=== PATIENT | female | born 1970 | race Caucasian/White ===

== ENCOUNTER 2017-12-11 12:22 | Observation (INO) | payer MEDICARE, OTHER, MEDICAID ==
[2017-12-11 13:09] VITALS: BMI 28.3
--- NOTE | 2017-12-11 13:15 | ED PDOC ---
Arrival/HPI - General Chief Complaint: Shortness Of Breath Time Seen by Provider: 12/11/17 12:30 Historian: Patient - History of Present Illness Narrative History of Present Illness (Text): 12/11/17 13:11 A 47 year old female, whose past medical history includes asthma and gastric bypass surgery, presents to the emergency department with a complaint of 6 day duration shortness of breath. The patient states that the shortness of breath have been worsening over the last few days. She has taken her Albuterol pump treatments and Prednisone with no relief of her symptoms. She notes that she called her PMD who prescribed her a Z- pack and recommended she come into the emergency department for further evaluation of her symptoms. The patient states that she has been admitted to the hospital for asthma exacerbation in the past. The patient denies fevers, chills, headache, dizziness, sore throat, cough, chest pain, abdominal pain, nausea, vomiting, diarrhea, neck/back pain, urinary/bowel changes or any other complaint. PMD: Dr. Menard Time/Duration: Other (6 days) Symptom Onset: Gradual Symptom Course: Worsening Activities at Onset: Rest, Light Context: Home Past Medical History - Provider Review Nursing Documentation Reviewed: Yes - Hematological/Oncological Hx Anemia: Yes - Psychiatric Hx Depression: No Hx Emotional Abuse: No Hx Physical Abuse: No Hx Substance Use: No - Surgical History Hx Gastric Bypass Surgery: Yes Hx Tonsillectomy: Yes Hx Tubal Ligation: Yes - Suicidal Assessment Feels Threatened In Home Enviroment: No Family/Social History - Physician Review Nursing Documentation Reviewed: Yes Family/Social History: No Known Family HX Smoking Status: Never Smoked Hx Alcohol Use: No Hx Substance Use: No Hx Substance Use Treatment: No Allergies/Home Meds Allergies/Adverse Reactions: Allergies ciprofloxacin [From Cipro] Allergy (Verified 12/11/17 13:10) REDNESS iodine Allergy (Verified 12/11/17 13:10) ANAPHYLAXIS levofloxacin [From Levaquin] Allergy (Verified 12/11/17 13:10) REDNESS moxifloxacin [From Avelox] Allergy (Verified 12/11/17 13:10) REDNESS Penicillins Allergy (Verified 12/11/17 13:10) REDNESS Home Medications: Home Meds Medication Instructions Recorded Confirmed Acetaminophen/Oxycodone Hydr 1 tab PO TID PRN 08/31/11 10/11/13 [Percocet 325 mg-7.5 mg] Alprazolam [Xanax] 0.5 mg PO TID 08/31/11 10/11/13 predniSONE [Prednisone] 5 mg PO DAILY 08/31/11 10/11/13 Albuterol Sulfate [Albuterol Hfa] 2 puff NEB Q6 PRN 11/04/11 10/11/13 B1/B2/Niacin/B12/Protease [B 1 tab PO DAILY 11/04/11 10/11/13 Complex & B12] Calcium/Vitamin D [Calcium 600 + 1 tab PO BID 11/04/11 10/11/13 Vitamin D 600 mg-200 Iu] Ferrous Sulfate 1 unit PO DAILY 11/04/11 10/11/13 Multivitamin, Minerals, and 1 tab PO BID 11/04/11 10/11/13 [Centrum Silver] Review of Systems - Physician Review All systems were reviewed & negative as marked: Yes - Review of Systems Constitutional: absent: Fevers ENT: absent: Sore Throat Respiratory: SOB Cardiovascular: absent: Chest Pain Gastrointestinal: absent: Abdominal Pain, Stool Changes, Constipation, Diarrhea, Nausea Genitourinary Female: absent: Urine Output Changes Musculoskeletal: absent: Back Pain, Neck Pain Neurological: absent: Headache, Dizziness Physical Exam Vital Signs Reviewed: Yes Temperature: Afebrile Blood Pressure: Hypertensive Pulse: Regular Respiratory Rate: Normal Appearance: Positive for: Well-Appearing, Non-Toxic, Comfortable Pain Distress: None Mental Status: Positive for: Alert and Oriented X 3 - Systems Exam Head: Present: Atraumatic, Normocephalic Pupils: Present: PERRL Extroacular Muscles: Present: EOMI Conjunctiva: Present: Normal Mouth: Present: Moist Mucous Membranes Neck: Present: Normal Range of Motion Respiratory/Chest: Present: Wheezes (Wheezing bilaterally. ) Cardiovascular: Present: Regular Rate and Rhythm, Normal S1, S2. No: Murmurs Abdomen: No: Tenderness, Distention, Peritoneal Signs Back: Present: Normal Inspection Upper Extremity: Present: Normal Inspection. No: Cyanosis, Edema Lower Extremity: Present: Normal Inspection. No: Edema Neurological: Present: GCS=15, CN II-XII Intact, Speech Normal Skin: Present: Warm, Dry, Normal Color. No: Rashes Psychiatric: Present: Alert, Oriented x 3, Normal Insight, Normal Concentration Medical Decision Making ED Course and Treatment: 12/11/17 13:17 Impression: A 47 year old female, with a history of asthma, presents to the emergency department with a complaint of 6 day duration shortness of breath. On exam, tony ent wheezing moderately bilaterally, but speaking full sentences in NAD. Plan: -- EKG -- Chest X-ray -- Labs -- SOLU- Medrol and Magnesium Sulfate -- Reassess and disposition Prior Visits: Notes and results from previous visits were reviewed. Progress Notes: 12/11/17 13:04 EKG: Ordered, reviewed, and independently interpreted the EKG. Rate : 69 BPM Rhythm : NSR Interpretation : No STEMI 12/11/17 16:22 lungs cta upon reassessment. pt notes some recurrent sob however and feels like she needs to stay. Given hx of admission for asthma, will place in obs for asthma. Consulted Dr. Menard: We are to admit to hospitalist. appreciate consult w/ Dr. Hernandez: to admit to his service, endorsed pending XR. - Lab Interpretations I have reviewed the lab results: Yes - EKG Interpretation Interpreted by ED Physician: Yes Type: 12 lead EKG - Scribe Statement The provider has reviewed the documentation as recorded by the Scribe Manasa Manzo Provider Scribe Attestation: All medical record entries made by the Scribe were at my direction and personally dictated by me. I have reviewed the chart and agree that the record accurately reflects my personal performance of the history, physical exam, medical decision making, and the department course for this patient. I have also personally directed, reviewed, and agree with the discharge instructions and disposition. Disposition/Present on Arrival - Present on Arrival Any Indicators Present on Arrival: No History of DVT/PE: No History of Uncontrolled Diabetes: No Urinary Catheter: No History of Decub. Ulcer: No History Surgical Site Infection Following: None - Disposition Have Diagnosis and Disposition been Completed?: Yes Diagnosis: Asthma Disposition Time: 16:15 Condition: GOOD Referrals: Kenny Menard MD [Primary Care Provider] - Follow up with primary Forms: [employer] ([employer])
[2017-12-11] MEDS ORDERED: Magnesium Sulfate 1 gm in D5W 1 GM/100 ML BAG IVPB ONE (13:30)
[2017-12-11] MEDS: Albuterol-Ipratrop 3 mg / 0.5 (3 ml) UD IH SCH ×3 (14:17→23:54)
[2017-12-11 14:52] LABS: BASO # 0.02 K/mm3 (0.0-2.0); BASO % 0.3 % (0.0-3.0); EOS # 0.2 (0.0-0.7); EOS % 3.2 % (1.5-5.0); GRAN # 5.16 (1.4-6.5); GRAN % 68.6 % (50.0-68.0); HEMOGLOBIN 12.9 g/dL (12.0-16.0); LYMPH # 1.7 (1.2-3.4); LYMPH % 23.1 % (22.0-35.0); MEAN CELL VOLUME 90.1 fl (80.0-105.0); MEAN CORPUSCULAR HEMOGLOBIN 30.4 pg (25.0-35.0); MEAN CORPUSCULAR HGB CONC 33.8 g/dl (31.0-37.0); MEAN PLATELET VOLUME 11.1 fl (7.0-11.0); MONO # 0.4 (0.1-0.6); MONO % 4.8 % (1.0-6.0); RBC 4.24 10^6/uL (3.5-6.1); RED CELL DISTRIBUTION WIDTH 12.8 % (11.5-14.5); WHITE BLOOD COUNT 7.5 10^3/ul (4.5-11.0)
[2017-12-11 16:08] LABS: ALB/GLOB RATIO 1.3 (1.1-1.8); ALBUMIN 4.2 g/dL (3.0-4.8); ALT/SGPT 34 U/L (7-56); AST/SGOT 31 U/L (14-36); BLOOD UREA NITROGEN 15 mg/dL (7-21); CALCIUM 9.5 mg/dL (8.4-10.5); GFR NON-AFRICAN AMERICAN > 60
[2017-12-11 16:19] LABS: TROPONIN I < 0.01 ng/mL
--- NOTE | 2017-12-11 18:23 | RAD ---
Date of service: 12/11/2017 HISTORY: sob COMPARISON: 11/04/2011 TECHNIQUE: Chest PA and lateral FINDINGS: LUNGS: No active pulmonary disease. PLEURA: No significant pleural effusion identified. No pneumothorax apparent. CARDIOVASCULAR: Normal. OSSEOUS STRUCTURES: No significant abnormalities. VISUALIZED UPPER ABDOMEN: Normal. OTHER FINDINGS: None. IMPRESSION: No active disease.
--- NOTE | 2017-12-11 19:19 | CP.PCM.HP ---
<Aldair Akers - Last Filed: 12/11/17 22:14> History of Present Illness - History of Present Illness History of Present Illness: Aldair Akers DO PGY1 - Internal Medicine [facility] H&P CC: wheezing, cough, chest tightness 47F PMH of asthma, chronic back pain, anxiety presented to [facility] on 12/11 w/ CC of Wheezing, Cough, and Chest tightness worsening 5 days prior to presentation. Patient reports she rarely uses her albuterol inhaler and has never been intubated 2/2 asthma symptoms. She reports increased use of nebulizer and asthma inhaler over the past week. Patient also saw PMD who started patient on azithromycin and medrol dose pack. She reports chronically taking 4mg prednisone EOD. She reports a friend of her's has been coughing recently however she herself denies any fevers or chills. Patient has not had any change in environment latley, or and dose not live in a smoking household. She issac any chest pain, abd pain, n/v/d/c, urinary discomfort, numbness/tingling, headhces and dizziness. Remainder of 12 system ROS is otherwise negative. PMD: [facility]: [facility] Social Hx: Denies EtOH, Smoking, and Illicit drug use; patient is unemployed. Allergies: Dust, cats, mold, cipro, iodine, levofloxacin, Moxifloxacin, penicillins PSH: Gastric bypass PMH: As above Home Rx: Valium 5 BID, Percocet 10-325 Q6H, Solumedrol 4mg EOD, Albuterol PRN, F lonase PRN, Zofran ODT Present on Admission - Present on Admission Any Indicators Present on Admission: No Review of Systems - Review of Systems All systems: reviewed and no additional remarkable complaints except Review of Systems: as per HPI Past Patient History - Past Social History Smoking Status: Never Smoked - HEMATOLOGICAL/ONCOLOGICAL Hx Anemia: Yes - PSYCHIATRIC Hx Depression: No Hx Emotional Abuse: No Hx Physical Abuse: No Hx Substance Use: No - SURGICAL HISTORY Hx Gastric Bypass Surgery: Yes Hx Tonsillectomy: Yes Hx Tubal Ligation: Yes - ANESTHESIA Hx Anesthesia: Yes Hx Anesthesia Reactions: Yes Meds Allergies/Adverse Reactions: Allergies Allergy/AdvReac Type Severity Reaction Status Date / Time ciprofloxacin [From Cipro] Allergy REDNESS Verified 12/11/17 20:57 iodine Allergy ANAPHYLAXIS Verified 12/11/17 20:57 levofloxacin [From Levaquin] Allergy REDNESS Verified 12/11/17 20:57 moxifloxacin [From Avelox] Allergy REDNESS Verified 12/11/17 20:57 Penicillins Allergy REDNESS Verified 12/11/17 20:57 Physical Exam - Constitutional Appears: Well, Non-toxic, No Acute Distress - Head Exam Head Exam: ATRAUMATIC, NORMOCEPHALIC - Eye Exam Eye Exam: EOMI, Normal appearance, PERRL. absent: Scleral icterus - Neck Exam Neck exam: Positive for: Normal Inspection - Respiratory Exam Respiratory Exam: Wheezes (Mild wheezing; prolonged expiratory ). absent: Respiratory Distress Additional comments: Cough - Cardiovascular Exam Cardiovascular Exam: RRR, +S1, +S2. absent: Systolic Murmur - GI/Abdominal Exam GI & Abdominal Exam: Normal Bowel Sounds, Soft. absent: Tenderness - Back Exam Back exam: absent: CVA tenderness (L), CVA tenderness (R) - Neurological Exam Neurological exam: Alert, CN II-XII Intact, Oriented x3 - Psychiatric Exam Psychiatric exam: Normal Affect, Normal Mood - Skin Skin Exam: Dry, Intact, Warm Results - Vital Signs Recent Vital Signs: Last Vital Signs Temp 98.1 F 12/11/17 13:11 Pulse 84 12/11/17 18:13 Resp 18 12/11/17 18:13 BP 145/91 H 12/11/17 18:13 Pulse Ox 96 12/11/17 18:13 - Labs Result Diagrams: 12/11/17 14:30 12/11/17 15:00 Labs: Laboratory Results - last 24 hr 12/11/17 12/11/17 12/11/17 14:30 15:00 18:00 WBC 7.5 D RBC 4.24 Hgb 12.9 Hct 38.2 MCV 90.1 MCH 30.4 MCHC 33.8 RDW 12.8 Plt Count 311 MPV 11.1 H Gran % 68.6 H Lymph % (Auto) 23.1 [place] % (Auto) 4.8 Eos % (Auto) 3.2 Baso % (Auto) 0.3 Gran # 5.16 Lymph # (Auto) 1.7 [place] # (Auto) 0.4 Eos # (Auto) 0.2 Baso # (Auto) 0.02 Sodium 140 Potassium 3.7 Chloride 105 Carbon Dioxide 28 Anion Gap 11 BUN 15 Creatinine 0.5 L Est GFR ( Amer) > 60 Est GFR (Non-Af Amer) > 60 Random Glucose 112 H Calcium 9.5 Total Bilirubin 0.3 AST 31 ALT 34 Alkaline Phosphatase 80 Troponin I < 0.01 Total Protein 7.6 Albumin 4.2 Globulin 3.4 Albumin/Globulin Ratio 1.3 Influenza Typ A,B (EIA) Negative for flu a/b Assessment & Plan - Assessment and Plan (Free Text) Assessment: 47F PMH of asthma, chronic back pain, anxiety presented to [facility] ED on 12/11 w/ CC of Wheezing, Cough, and Chest tightness worsening 5 days prior to presentation; Subsequently admitted for inpatient management of asthma exacerbation. PLAN: Asthma Exacerbation: CXR wnl Flu swab negative Duoneb Q4H WM/ Q2H PRN Azithromycin 250mg x1 tomorrow Solumedrol 20mg IVP Q12 Chronic Back Pain Percocet 10-325 Q6H PRN severe Pain Anxiety Valium 5mg BID DVT PPX: SCD GI PPX: Protonix Dispo: Patient admitted to obs for management of asthma exacerbation refractory to albuterol rescue inhaler Patient was seen, examined, and discussed w/ attending physician Dr. David Akers DO PGY1 - Internal Medicine [facility] Progress Note - Date & Time Date: 12/11/17 Time: 22:35 <Salima Hernandez - Last Filed: 12/12/17 07:45> Results - Vital Signs Recent Vital Signs: Last Vital Signs Temp 98.2 F 12/11/17 19:15 Pulse 69 12/12/17 06:00 Resp 18 12/11/17 23:43 BP 133/86 12/11/17 19:15 Pulse Ox 96 12/11/17 19:15 - Labs Result Diagrams: 12/11/17 14:30 12/11/17 15:00 Labs: Laboratory Results - last 24 hr 12/11/17 12/11/17 12/11/17 14:30 15:00 18:00 WBC 7.5 D RBC 4.24 Hgb 12.9 Hct 38.2 MCV 90.1 MCH 30.4 MCHC 33.8 RDW 12.8 Plt Count 311 MPV 11.1 H Gran % 68.6 H Lymph % (Auto) 23.1 [place] % (Auto) 4.8 Eos % (Auto) 3.2 Baso % (Auto) 0.3 Gran # 5.16 Lymph # (Auto) 1.7 [place] # (Auto) 0.4 Eos # (Auto) 0.2 Baso # (Auto) 0.02 Sodium 140 Potassium 3.7 Chloride 105 Carbon Dioxide 28 Anion Gap 11 BUN 15 Creatinine 0.5 L Est GFR ( Amer) > 60 Est GFR (Non-Af Amer) > 60 Random Glucose 112 H Calcium 9.5 Total Bilirubin 0.3 AST 31 ALT 34 Alkaline Phosphatase 80 Troponin I < 0.01 Total Protein 7.6 Albumin 4.2 Globulin 3.4 Albumin/Globulin Ratio 1.3 Influenza Typ A,B (EIA) Negative for flu a/b Attending/Attestation - Attestation I have personally seen and examined this patient.: Yes I have fully participated in the care of the patient.: Yes I have reviewed all pertinent clinical information: Yes Notes (Text): 12/11/17 47 year old female with past medical history of asthma, chronic back pain and anxiety who is admitted with asthma exacerbation with failed outpatient treatment. Continue with iv steroids and duonebs. She is also on azithromycin. She is on percocet prn for chronic back pain and valium for history of anxiety. Salima Hernandez MD Hospitalist.
[2017-12-11] MEDS ORDERED: ACETAMINOPHEN PO PRN (19:27)
[2017-12-11] MEDS ORDERED: OXYCODONE HYDR PO PRN (19:27)
[2017-12-11] MEDS ORDERED: Oxycodone/Acetaminophen 2.5/325 mg Tab PO PRN (19:28)
[2017-12-11] MEDS ORDERED: oxyCODONE 5 mg Immediate Release Tab PO PRN ×2 (19:34→20:19)
[2017-12-11] MEDS: MethylPREDNISolone 40 mg Vial IVP SCH (21:43)
[2017-12-11] MEDS ORDERED: Albuterol-Ipratrop 3 mg / 0.5 (3 ml) UD IH PRN (22:30)
[2017-12-11] MEDS ORDERED: Pneumococcal 23-Valent Vaccine IM ONE (23:58)
[2017-12-11] MEDS ORDERED: Influenza Vaccine 60 mcg/0.5 mL SYR (4YR UP) IM ONE (23:58)
[2017-12-12] MEDS: Oxycodone/Acetaminophen 10/325 mg Tab PO PRN ×3 (03:42→15:36)
[2017-12-12] MEDS: Albuterol-Ipratrop 3 mg / 0.5 (3 ml) UD IH SCH ×2 (04:17→07:44)
[2017-12-12] MEDS ORDERED: Pantoprazole 40 mg EC Tab PO SCH (06:00)
[2017-12-12 08:38] LABS: GRAN # 5.39 (1.4-6.5); GRAN % 77.5 % (50.0-68.0); HEMOGLOBIN 12.5 g/dL (12.0-16.0); LYMPH # 1.1 (1.2-3.4); LYMPH % 16.2 % (22.0-35.0); MEAN CELL VOLUME 92.1 fl (80.0-105.0); MEAN CORPUSCULAR HGB CONC 32.6 g/dl (31.0-37.0); MEAN PLATELET VOLUME 11.1 fl (7.0-11.0); MONO # 0.4 (0.1-0.6); MONO % 6.3 % (1.0-6.0); RBC 4.16 10^6/uL (3.5-6.1); RED CELL DISTRIBUTION WIDTH 12.4 % (11.5-14.5)
[2017-12-12 08:54] VITALS: RESP 20
[2017-12-12 09:03] LABS: ALB/GLOB RATIO 1.3 (1.1-1.8); ALBUMIN 4.3 g/dL (3.0-4.8); ALT/SGPT 24 U/L (7-56); AST/SGOT 29 U/L (14-36); BLOOD UREA NITROGEN 15 mg/dL (7-21); CALCIUM 9.7 mg/dL (8.4-10.5); GFR NON-AFRICAN AMERICAN > 60
[2017-12-12] MEDS: MethylPREDNISolone 40 mg Vial IVP SCH (09:36)
--- NOTE | 2017-12-12 12:17 | CP.PCM.DIS ---
<Lyle Manzano - Last Filed: 12/12/17 12:21> Provider - Provider Date of Admission: 12/11/17 16:19 Attending physician: Salima Hernandez MD Primary care physician: Kenny Menard MD Time Spent in preparation of Discharge (in minutes): 38 Diagnosis - Discharge Diagnosis (1) Asthma exacerbation Status: Resolved Priority: High Hospital Course - Lab Results Lab Results: Most Recent Lab Values WBC 7.0 10^3/ul (4.5-11.0) 12/12/17 07:00 RBC 4.16 10^6/uL (3.5-6.1) 12/12/17 07:00 Hgb 12.5 g/dL (12.0-16.0) 12/12/17 07:00 Hct 38.3 % (36.0-48.0) 12/12/17 07:00 MCV 92.1 fl (80.0-105.0) 12/12/17 07:00 MCH 30.0 pg (25.0-35.0) 12/12/17 07:00 MCHC 32.6 g/dl (31.0-37.0) 12/12/17 07:00 RDW 12.4 % (11.5-14.5) 12/12/17 07:00 Plt Count 324 10^3/uL (120.0-450.0) 12/12/17 07:00 MPV 11.1 fl (7.0-11.0) H 12/12/17 07:00 Gran % 77.5 % (50.0-68.0) H 12/12/17 07:00 Lymph % (Auto) 16.2 % (22.0-35.0) L 12/12/17 07:00 [place] % (Auto) 6.3 % (1.0-6.0) H 12/12/17 07:00 Eos % (Auto) 0.0 % (1.5-5.0) L 12/12/17 07:00 Baso % (Auto) 0.0 % (0.0-3.0) 12/12/17 07:00 Gran # 5.39 (1.4-6.5) 12/12/17 07:00 Lymph # (Auto) 1.1 (1.2-3.4) L 12/12/17 07:00 [place] # (Auto) 0.4 (0.1-0.6) 12/12/17 07:00 Eos # (Auto) 0.0 (0.0-0.7) 12/12/17 07:00 Baso # (Auto) 0.00 K/mm3 (0.0-2.0) 12/12/17 07:00 Sodium 138 mmol/L (132-148) 12/12/17 07:00 Potassium 4.2 mmol/L (3.6-5.0) 12/12/17 07:00 Chloride 100 mmol/L (98-107) 12/12/17 07:00 Carbon Dioxide 30 mmol/L (21-33) 12/12/17 07:00 Anion Gap 13 (10-20) 12/12/17 07:00 BUN 15 mg/dL (7-21) 12/12/17 07:00 Creatinine 0.5 mg/dl (0.7-1.2) L 12/12/17 07:00 Est GFR ( Amer) > 60 12/12/17 07:00 Est GFR (Non-Af Amer) > 60 12/12/17 07:00 Random Glucose 96 mg/dL (70-110) 12/12/17 07:00 Calcium 9.7 mg/dL (8.4-10.5) 12/12/17 07:00 Phosphorus 3.9 mg/dL (2.5-4.5) 12/12/17 07:00 Magnesium 2.2 mg/dL (1.7-2.2) 12/12/17 07:00 Total Bilirubin 0.3 mg/dL (0.2-1.3) 12/12/17 07:00 AST 29 U/L (14-36) 12/12/17 07:00 ALT 24 U/L (7-56) 12/12/17 07:00 Alkaline Phosphatase 68 U/L (38-126) 12/12/17 07:00 Troponin I < 0.01 ng/mL 12/11/17 15:00 Total Protein 7.6 g/dL (5.8-8.3) 12/12/17 07:00 Albumin 4.3 g/dL (3.0-4.8) 12/12/17 07:00 Globulin 3.3 gm/dL 12/12/17 07:00 Albumin/Globulin Ratio 1.3 (1.1-1.8) 12/12/17 07:00 Influenza Typ A,B (EIA) Negative for flu a/b (NEGATIVE) 12/11/17 18:00 - Hospital Course Hospital Course: CC: wheezing, cough, chest tightness 47F PMH of asthma, chronic back pain, anxiety presented to [facility] ED on 12/11 w/ CC of Wheezing, Cough, and Chest tightness worsening 5 days prior to presentation. Patient reports she rarely uses her albuterol inhaler and has never been intubated 2/2 asthma symptoms. She reports increased use of nebulizer and asthma inhaler over the past week. Patient also saw PMD who started patient on azithromycin and medrol dose pack. She reports chronically taking 4mg prednisone EOD. She reports a friend of her's has been coughing recently however she herself denies any fevers or chills. Patient has not had any change in environment latley, or and dose not live in a smoking household. She issac any chest pain, abd pain, n/v/d/c, urinary discomfort, numbness/tingling, headhces and dizziness. Remainder of 12 system ROS is otherwise negative. PMD: [facility]: [facility] Social Hx: Denies EtOH, Smoking, and Illicit drug use; patient is unemployed. Allergies: Dust, cats, mold, cipro, iodine, levofloxacin, Moxifloxacin, penicillins PSH: Gastric bypass PMH: As above Home Rx: Valium 5 BID, Percocet 10-325 Q6H, Solumedrol 4mg EOD, Albuterol PRN, Flonase PRN, Zofran ODT HOSPITAL COURSE: Symptoms of asthma exacerbation improved significantly. She was given duoben 3ml q4h and prn for rescue. She was also given solumedrol 20mg ivp q12h and azithromycin 250mg po once. Her flu swab was negative and her CXR was clear. It's possible her asthma exacerbation was triggered by a recent URI. Her labwork was benign. Some of her home medications were continued for her chronic conditions. Lungs were clear by discharge. Discharge instructions were clearly explained to her. Discharge Exam - Head Exam Head Exam: ATRAUMATIC, NORMOCEPHALIC - Additional Findings Additional findings: - Constitutional Appears: Well, Non-toxic, No Acute Distress - Head Exam Head Exam: ATRAUMATIC, NORMOCEPHALIC - Eye Exam Eye Exam: EOMI, Normal appearance, PERRL. absent: Scleral icterus - Neck Exam Neck exam: Positive for: Normal Inspection - Respiratory Exam Respiratory Exam: clear to auscultation bilaterally absent: Respiratory Distress Additional comments: - Cardiovascular Exam Cardiovascular Exam: RRR, +S1, +S2. absent: Systolic Murmur - GI/Abdominal Exam GI & Abdominal Exam: Normal Bowel Sounds, Soft. absent: Tenderness - Back Exam Back exam: absent: CVA tenderness (L), CVA tenderness (R) - Neurological Exam Neurological exam: Alert, CN II-XII Intact, Oriented x3 - Psychiatric Exam Psychiatric exam: Normal Affect, Normal Mood - Skin Skin Exam: Dry, Intact, Warm Discharge Plan - Discharge Medications Prescriptions: Methylprednisolone [Medrol Dose Pack (21 tabs)] See Taper PO DAILY #21 mg - Follow Up Plan Condition: GOOD Disposition: HOME/ ROUTINE Additional Instructions: Please follow-up with your primary medical doctor, Dr Menard, within 1 week. You will be given a script for a medrol dose pack - this is a 6 day course which you should take as instructed on the box. Continue all your home medications as prescribed by Dr Menard. You need to establish care with a icing maker (lung doctor) so he/she can do appropriate tests to assess your level of asthma and possibly prescribe you a new inhaler in addition to your albuterol. If symptoms return go to your nearest emergency department. Referrals: Kenny Menard MD [Primary Care Provider] - <Salima Hernandez - Last Filed: 12/12/17 13:32> Provider - Provider Date of Admission: 12/11/17 16:19 Attending physician: Salima Hernandez MD Primary care physician: Kenny Menard MD Hospital Course - Lab Results Lab Results: Most Recent Lab Values WBC 7.0 10^3/ul (4.5-11.0) 12/12/17 07:00 RBC 4.16 10^6/uL (3.5-6.1) 12/12/17 07:00 Hgb 12.5 g/dL (12.0-16.0) 12/12/17 07:00 Hct 38.3 % (36.0-48.0) 12/12/17 07:00 MCV 92.1 fl (80.0-105.0) 12/12/17 07:00 MCH 30.0 pg (25.0-35.0) 12/12/17 07:00 MCHC 32.6 g/dl (31.0-37.0) 12/12/17 07:00 RDW 12.4 % (11.5-14.5) 12/12/17 07:00 Plt Count 324 10^3/uL (120.0-450.0) 12/12/17 07:00 MPV 11.1 fl (7.0-11.0) H 12/12/17 07:00 Gran % 77.5 % (50.0-68.0) H 12/12/17 07:00 Lymph % (Auto) 16.2 % (22.0-35.0) L 12/12/17 07:00 [place] % (Auto) 6.3 % (1.0-6.0) H 12/12/17 07:00 Eos % (Auto) 0.0 % (1.5-5.0) L 12/12/17 07:00 Baso % (Auto) 0.0 % (0.0-3.0) 12/12/17 07:00 Gran # 5.39 (1.4-6.5) 12/12/17 07:00 Lymph # (Auto) 1.1 (1.2-3.4) L 12/12/17 07:00 [place] # (Auto) 0.4 (0.1-0.6) 12/12/17 07:00 Eos # (Auto) 0.0 (0.0-0.7) 12/12/17 07:00 Baso # (Auto) 0.00 K/mm3 (0.0-2.0) 12/12/17 07:00 Sodium 138 mmol/L (132-148) 12/12/17 07:00 Potassium 4.2 mmol/L (3.6-5.0) 12/12/17 07:00 Chloride 100 mmol/L (98-107) 12/12/17 07:00 Carbon Dioxide 30 mmol/L (21-33) 12/12/17 07:00 Anion Gap 13 (10-20) 12/12/17 07:00 BUN 15 mg/dL (7-21) 12/12/17 07:00 Creatinine 0.5 mg/dl (0.7-1.2) L 12/12/17 07:00 Est GFR ( Amer) > 60 12/12/17 07:00 Est GFR (Non-Af Amer) > 60 12/12/17 07:00 Random Glucose 96 mg/dL (70-110) 12/12/17 07:00 Calcium 9.7 mg/dL (8.4-10.5) 12/12/17 07:00 Phosphorus 3.9 mg/dL (2.5-4.5) 12/12/17 07:00 Magnesium 2.2 mg/dL (1.7-2.2) 12/12/17 07:00 Total Bilirubin 0.3 mg/dL (0.2-1.3) 12/12/17 07:00 AST 29 U/L (14-36) 12/12/17 07:00 ALT 24 U/L (7-56) 12/12/17 07:00 Alkaline Phosphatase 68 U/L (38-126) 12/12/17 07:00 Troponin I < 0.01 ng/mL 12/11/17 15:00 Total Protein 7.6 g/dL (5.8-8.3) 12/12/17 07:00 Albumin 4.3 g/dL (3.0-4.8) 12/12/17 07:00 Globulin 3.3 gm/dL 12/12/17 07:00 Albumin/Globulin Ratio 1.3 (1.1-1.8) 12/12/17 07:00 Influenza Typ A,B (EIA) Negative for flu a/b (NEGATIVE) 12/11/17 18:00 Attending/Attestation - Attestation I have personally seen and examined this patient.: Yes I have fully participated in the care of the patient.: Yes I have reviewed all pertinent clinical information, including history, physical exam and plan: Yes Notes (Text): 12/12/17 13:31 47 year old female with past medical history of asthma, chronic back pain and anxiety who presented with asthma exacerbation with failed outpatient treatment. She was started on iv steroids and duonebs with improvement of symptoms. She is on percocet prn for chronic back pain and valium for history of anxiety. Following day her symptoms improved. She is discharged home on tapering steroids. Follow up with pmd, Dr. Menard. Follow up with icing maker. Outpatient PFTs. Salima Hernandez MD Hospitalist.
[2017-12-12] MEDS ORDERED: Albuterol-Ipratrop 3 mg / 0.5 (3 ml) UD IH SCH (14:00)
--- NOTE | 2017-12-12 15:28 | CARD ---
APPROVED REPORT Date of service: 12/11/2017 EKG Measurement Heart [id number] <Conclusion> Normal sinus rhythm Normal ECG
[2017-12-12 17:08] VITALS: BP 119/73; PULSE 99; TEMP 98.2; O2SAT 95
== END 2017-12-12 17:07 | disposition home or self-care (01) ==
LOC: ED 12:22 → ERH 16:19 → 3RNO 19:00
PROVIDERS: ADMIT Internal Medicine; ATTEND Internal Medicine
DX: J45.901 Unspecified asthma with (acute) exacerbation (principal); G89.29 Other chronic pain; M54.9 Dorsalgia, unspecified; F41.9 Anxiety disorder, unspecified; Z98.84 Bariatric surgery status
CPT/HCPCS: 36415; 71046; 80053; 83735; 84100; 84484; 85025; 87804; 93005; 94640; 94760; 96374; 99284; G0378; J2920; J2930; J3475